=== PATIENT | male | born 1945 | race Caucasian/White ===

== ENCOUNTER → 2018-08-17 | Outpatient (CLI) | payer OTHER ==
[~2018-08-17] MED LIST: AMLO10TA6 PO; AMNESTEEM; ASPI-555 PO; ATOR40TA71 PO; CARV25TA PO; FISH1CAP49 PO; FURO40TA5 PO; LEVO100T12 PO; LOSA100T20 PO; METR45G TP; MULT-1289 PO; OMEP20TA25 PO; POTA25TA13 PO; REGADENOSON 0.4 MG/5 ML PF SYG IVP SCH; TRIA15CR48 TP; VIT D3
== END | disposition home or self-care (01) ==
LOC: SHCH 07:41
PROVIDERS: ATTEND Internal Medicine Cardiovascular Disease
DX: I25.10 Atherosclerotic heart disease of native coronary artery without angina pectoris (principal); K21.9 Gastro-esophageal reflux disease without esophagitis; Z72.89 Other problems related to lifestyle
CPT/HCPCS: 78452; 93017; 96374; A9505; J2785

== ENCOUNTER 2021-07-08 21:37 | Emergency (ER) | payer OTHER ==
[~2021-07-08] VITALS: Ht 180.3 cm; Wt 115.7 kg
[~2021-07-08 21:37] MED LIST changes: +AMLO-258 PO; -AMLO10TA6 PO; -ASPI-555 PO; +ASPI-556 PO; -LOSA100T20 PO; +LOSA100T58 PO; -REGADENOSON 0.4 MG/5 ML PF SYG IVP SCH
[2021-07-08] MEDS ORDERED: MORPHINE 4 MG SYG IM STA (22:02)
[2021-07-08] MEDS ORDERED: ONDANSETRON ODT 4MG TAB SL STA (22:02)
[2021-07-08] MEDS ORDERED: KETOROLAC 30MG VIAL (30MG/ML) IM STA (22:09)
[2021-07-08 22:58] VITALS: BP 147/78
[2021-07-08] MEDS ORDERED: HYDROCODONE/ACETAMINOPHEN 5/325 MG TAB PO STA (23:13)
[2021-07-08 23:30] VITALS: BP 139/81
== END 2021-07-08 23:34 | disposition home or self-care (01) ==
LOC: EDH 21:37
DX: S20.212A Contusion of left front wall of thorax, initial encounter (principal); S20.222A Contusion of left back wall of thorax, initial encounter; M25.532 Pain in left wrist; E78.00 Pure hypercholesterolemia, unspecified; I11.0 Hypertensive heart disease with heart failure; I50.9 Heart failure, unspecified; Z79.1 Long term (current) use of non-steroidal anti-inflammatories (NSAID); Z79.82 Long term (current) use of aspirin; Z79.899 Other long term (current) drug therapy; W01.198A Fall on same level from slipping, tripping and stumbling with subsequent striking against other object, initial encounter; Y93.89 Activity, other specified; Y92.89 Other specified places as the place of occurrence of the external cause; Y99.8 Other external cause status
CPT/HCPCS: 71101; 73030; 96372 ×2; 99284; J1885; J2270

== ENCOUNTER 2021-08-06 13:29 | Emergency (ER) | payer OTHER ==
[~2021-08-06] VITALS: Ht 180.3 cm; Wt 115.7 kg
[2021-08-06 13:31] VITALS: BP 167/96
== END 2021-08-06 14:52 | disposition home or self-care (01) ==
LOC: EDH 13:29
DX: S62.135A Nondisplaced fracture of capitate [os magnum] bone, left wrist, initial encounter for closed fracture (principal); I11.0 Hypertensive heart disease with heart failure; I50.9 Heart failure, unspecified; Z79.82 Long term (current) use of aspirin; E78.00 Pure hypercholesterolemia, unspecified; Z79.899 Other long term (current) drug therapy; Z87.19 Personal history of other diseases of the digestive system; X58.XXXA Exposure to other specified factors, initial encounter; Y93.89 Activity, other specified; Y92.89 Other specified places as the place of occurrence of the external cause; Y99.8 Other external cause status
CPT/HCPCS: 29125; 73090; 73130

== ENCOUNTER → 2022-12-16 | Outpatient (CLI) | payer OTHER ==
[~2022-12-16] MED LIST changes: -AMNESTEEM; +CLON0.1T PO; -FISH1CAP49 PO; -FURO40TA5 PO; +FURO80TA3 PO; -METR45G TP; -MULT-1289 PO; -OMEP20TA25 PO; +PANT40TA54 PO; -POTA25TA13 PO; +POTA40LI17 PO; +REGADENOSON 0.4 MG/5 ML PF SYG IVP SCH; -TRIA15CR48 TP; -VIT D3
== END | disposition home or self-care (01) ==
LOC: SHCH 08:08
PROVIDERS: ATTEND Internal Medicine Cardiovascular Disease
DX: I25.10 Atherosclerotic heart disease of native coronary artery without angina pectoris (principal); Z98.61 Coronary angioplasty status
CPT/HCPCS: 78452; 96374; 93017; J2785; A9500 ×2